=== PATIENT | female | born 1965 ===

== ENCOUNTER 2017-11-11 09:11 | Emergency (ER) | payer BC, OTHER ==
[2017-11-11 09:26] VITALS: BP 108/71
--- NOTE | 2017-11-11 09:57 | UC ---
Respiratory Complaint HPI - HPI Summary HPI Summary: ABOUT 10 DAYS OF COUGH, CONGESTION AND INTERMITTENT LEFT EAR PAIN. HAS BEEN USING OTC MEDS WITHOUT MUCH RELIEF. WILL BE TRAVELING AND DOING [employer] NEXT WEEK AND IS CONCERNED THAT SHE IS NOT IMPROVING. NO FEVER, NAUSEA/VOMITING. - History of Current Complaint Chief Complaint: UCRespiratory Stated Complaint: COUGH,EAR PAIN Time Seen by Provider: 11/11/17 09:25 Hx Obtained From: Patient Onset/Duration: Gradual Onset, Lasting Days, Still Present Timing: Constant Severity Initially: Moderate Severity Currently: Moderate Pain Intensity: 2 Pain Scale Used: 0-10 Numeric Character: Cough: Nonproductive Aggravating Factors: Nothing Alleviating Factors: Nothing Associated Signs And Symptoms: Positive: URI, Nasal Congestion. Negative: Dyspnea, Fever, Chills, Wheezing - Allergies/Home Medications Allergies/Adverse Reactions: Allergies Allergy/AdvReac Type Severity Reaction Status Date / Time No Known Allergies Allergy Verified 11/11/17 09:26 Home Medications: Home Medications D-Methorphan/PE/Acetaminophen [Vicks Dayquil Liquicaps] 1 cap PO 11/11/17 [ History] Loratadine/Pseudoephedrine [Claritin-D 12 Hour Tablet] 1 tab PO 11/11/17 [ History] guaiFENesin [Mucinex] 600 mg PO 11/11/17 [History] PMH/Surg Hx/FS Hx/Imm Hx Previously Healthy: Yes - Surgical History Surgical History: Yes Surgery Procedure, Year, and Place: 2 c-sections, d&c X2 - Family History Known Family History: Positive: Hypertension - Social History Alcohol Use: Occasionally Substance Use Type: None Smoking Status (MU): Never Smoked Tobacco Review of Systems Constitutional: Negative ENT: Sore Throat, Ear Ache, Nasal Discharge Respiratory: Cough Cardiovascular: Negative Gastrointestinal: Negative All Other Systems Reviewed And Are Negative: Yes Physical Exam Triage Information Reviewed: Yes Appearance: Well-Appearing, No Pain Distress, Well-Nourished Vital Signs: Initial Vital Signs Temp 98.5 F 11/11/17 09:23 Pulse 68 11/11/17 09:23 Resp 18 11/11/17 09:23 BP 108/71 11/11/17 09:23 Pulse Ox 99 11/11/17 09:23 Vital Signs Reviewed: Yes Eyes: Positive: Conjunctiva Clear ENT: Positive: Hearing grossly normal, Pharynx normal, TMs normal Neck: Positive: Supple, Nontender, No Lymphadenopathy Respiratory Exam: Normal Cardiovascular Exam: Normal Abdomen Description: Positive: Soft Musculoskeletal: Positive: No Edema Neurological: Positive: Alert Psychological: Positive: Age Appropriate Behavior Skin: Negative: rashes UC Diagnostic Evaluation - Laboratory O2 Sat by Pulse Oximetry: 99 Respiratory Course/Dx - Differential Dx/Diagnosis Provider Diagnoses: ACUTE BRONCHITIS Discharge - Sign-Out/Discharge Documenting (check all that apply): Patient Departure - Discharge Plan Condition: Stable Disposition: HOME Prescriptions: Azithromycin 500 mg PO DAILY #5 tab Patient Education Materials: Acute Bronchitis (ED) Referrals: No Primary Care Phys,NOPCP [Primary Care Provider] - Additional Instructions: YOUR SYMPTOMS MAY BE VIRALLY MEDIATED BUT GIVEN THE LENGTH OF TIME YOU HAVE BEEN ILL WE WILL COVER YOU WITH ANTIBIOTICS. IF YOU START THE MEDICINE BE SURE TO TAKE IT FOR THE FULL COURSE. REST, HYDRATE, OTC MEDS NEEDED. SEEK FOLLOW- UP WITH YOUR PCP IF YOU ARE NOT IMPROVING OVER THE NEXT 1-2 WEEKS. CALL THE NUMBER BELOW FOR ASSISTANCE IN ESTABLISHING WITH A PCP An additional resource available to assist in finding the appropriate physician for your health care needs is [facility] ([facility]). You may contact them by calling [phone] - Billing Disposition and Condition Condition: STABLE Disposition: Home
== END 2017-11-11 09:55 | disposition home or self-care (01) ==
LOC: UCEAST 09:11
DX: J20.9 Acute bronchitis, unspecified (principal)
CPT/HCPCS: 99202; G0463

== ENCOUNTER 2018-05-27 11:45 | Emergency (ER) | payer BC, OTHER ==
[2018-05-27 12:19] VITALS: BP 132/80
[2018-05-27] MEDS ORDERED: Albuterol/Ipratropium NEB.SOL* Albuterol 2.5 MG/Ipratropium 0.5 MG 3 ML INH ONE (12:32)
--- NOTE | 2018-05-27 12:39 | UC ---
Throat Pain/Nasal Angel HPI - HPI Summary HPI Summary: Ill for 5 days with cold symptoms now worsening. Also has mild dysuria. - History of Current Complaint Chief Complaint: UCRespiratory Stated Complaint: RESP Time Seen by Provider: 05/27/18 12:26 Hx Obtained From: Patient Hx Last Menstrual Period: 05/04/18 ?: No Onset/Duration: Gradual Onset Severity: Mild Pain Intensity: 0 Cough: Productive - Productive of yellow sputum Associated Signs & Symptoms: Positive: Sinus Discomfort, Nasal Discharge - Epiglottits Risk Factors Epiglottis Risk Factors: Negative - Allergies/Home Medications Allergies/Adverse Reactions: Allergies Allergy/AdvReac Type Severity Reaction Status Date / Time No Known Allergies Allergy Verified 05/27/18 12:19 PMH/Surg Hx/FS Hx/Imm Hx Previously Healthy: Yes - Surgical History Surgical History: Yes Surgery Procedure, Year, and Place: 2 c-sections, d&c X2 - Family History Known Family History: Positive: Hypertension - Social History Alcohol Use: Occasionally Substance Use Type: None Smoking Status (MU): Never Smoked Tobacco Review of Systems All Other Systems Reviewed And Are Negative: Yes Constitutional: Positive: Negative - Low grade fever here but has not had one at home Skin: Positive: Negative Eyes: Positive: Negative ENT: Positive: Nasal Discharge, Sinus Congestion Respiratory: Positive: Cough - Productive of yellow sputum Cardiovascular: Positive: Negative Gastrointestinal: Positive: Negative Genitourinary: Positive: Dysuria - Burning on urination 2-3 days ago. She though it might be a yeast infection so she has been using Monistat and the burning resolved.. Negative: Vaginal/Penile Discharge, Vaginal/Penile Pain Motor: Positive: Negative Neurovascular: Positive: Negative Musculoskeletal: Positive: Negative Neurological: Positive: Negative Psychological: Positive: Negative Is Patient Immunocompromised?: No Physical Exam Triage Information Reviewed: Yes Appearance: Well-Appearing, No Pain Distress, Well-Nourished Vital Signs: Initial Vital Signs Temp 99.6 F 05/27/18 12:16 Pulse 85 05/27/18 12:16 Resp 16 05/27/18 12:16 BP 132/80 05/27/18 12:16 Pulse Ox 97 05/27/18 12:16 Vital Signs Reviewed: Yes Eye Exam: Normal ENT: Positive: Nasal congestion, Nasal drainage - Clear nasal coryza Neck exam: Normal Neck: Positive: Supple, Nontender, No Lymphadenopathy Respiratory: Positive: No respiratory distress, Rhonchi, Wheezing - Mild rhonchi on forced expiration, mild tight cough with minimal wheezing on forced expiration. Cardiovascular Exam: Normal Cardiovascular: Positive: RRR, No Murmur, Pulses Normal Abdomen Description: Positive: Nontender, No Organomegaly, Soft Bowel Sounds: Positive: Present Musculoskeletal Exam: Normal Neurological Exam: Normal Psychological Exam: Normal Skin Exam: Normal Diagnostics - Radiology No standard instances Radiology Interpretation Completed By: Radiologist - Final Chest Xray report reviewed: IMPRESSION: NO EVIDENCE FOR ACTIVE CARDIOPULMONARY DISEASE. Throat Pain/Nasal Course/Dx - Differential Dx/Diagnosis Provider Diagnosis: Bronchitis Discharge - Sign-Out/Discharge Documenting (check all that apply): Patient Departure All imaging exams completed and their final reports reviewed: No Studies - Discharge Plan Condition: Good Disposition: HOME Prescriptions: Albuterol HFA INHALER* [Ventolin HFA Inhaler*] 2 puff INH Q4H PRN 5 Days #1 mdi PRN Reason: Wheezing Patient Education Materials: Acute Bronchitis (ED) Referrals: No Primary Care Phys,NOPCP [Primary Care Provider] - Additional Instructions: Definite follow up with your doctor if no improvement in 2-3 days or if you develop fever, worsening of symptoms - Billing Disposition and Condition Condition: GOOD Disposition: Home
== END 2018-05-27 13:30 | disposition home or self-care (01) ==
LOC: UCEAST 11:45
DX: J40 Bronchitis, not specified as acute or chronic (principal); R30.0 Dysuria
CPT/HCPCS: 71046; 81003; 99212; A9270-GY; G0463